=== PATIENT | female | born 1995 | race Caucasian/White ===

== ENCOUNTER 2017-03-18 20:49 | Emergency (ER) | payer OTHER ==
[2017-03-18 22:33] LABS: APPEARANCE,URINE SLIGHTLY-CLOUDY; BILIRUBIN,URINE NEGATIVE (NEGATIVE); GLUCOSE, URINE NEGATIVE (NEGATIVE); KETONES,URINE NEGATIVE (NEGATIVE); LEUKOCYTE ESTERASE,URINE NEGATIVE (NEGATIVE); NITRITE,URINE NEGATIVE (NEGATIVE); PROTEIN,URINE NEGATIVE (NEGATIVE); URINE SPECIFIC GRAVITY 1.031; UROBILINOGEN,URINE NEGATIVE mg/dL (<2.0)
--- NOTE | 2017-03-18 22:55 | ER Document Report ---
ED General - General Chief Complaint: Nausea/Vomiting Stated Complaint: NAUSEOUS Time Seen by Provider: 03/18/17 22:44 Notes: Patient is a 21-year-old female presents with complaint of a headache. Patient says sometimes of the headache is when she takes off her glasses. When she puts her glasses on the headache goes away. Currently she is wearing her glasses and has no headache. She denies any focal weakness or numbness. She is due for an eye appointment. She has not made an appointment to see an eye doctor she just moved here. No recent fevers or infections. No trauma. No other complaints at this time. Patient also requests a test because she has had negative tests at home, but still thinks she could be . She has a history of endometriosis. TRAVEL OUTSIDE OF THE [place] IN LAST 30 DAYS: No Past Medical History - Social History Smoking Status: Never Smoker Frequency of alcohol use: None Drug Abuse: None Family History: Reviewed & Not Pertinent Patient has suicidal ideation: No Patient has homicidal ideation: No Renal/ Medical History: Denies: Hx Peritoneal Dialysis Review of Systems - Review of Systems Notes: My Normal Review Basic REVIEW OF SYSTEMS: CONSTITUTIONAL : Denies fever, chills, or sweats. Denies recent illness. RESPIRATORY: Denies cough, cold, or chest congestion. Denies shortness of breath, difficulty breathing, or wheezing. GASTROINTESTINAL: Denies abdominal pain. Denies nausea, vomiting, or diarrhea. Denies constipation. MUSCULOSKELETAL: Denies neck or back pain or joint pain or swelling. SKIN: Denies rash or skin lesions. NEUROLOGICAL: Denies altered mental status or loss of consciousness. Intermittent headache. Denies weakness or paralysis or loss of use of either side. Denies problems with gait or speech. Denies sensory or motor loss. PSYCHIATRIC: Denies anxiety or stress or depression. ALL OTHER SYSTEMS REVIEWED AND NEGATIVE. Physical Exam - Vital signs Vitals: Temp Pulse Resp BP Pulse Ox 98.2 F 96 18 134/89 H 98 03/18/17 21:33 03/18/17 21:33 03/18/17 21:33 03/18/17 21:33 03/18/17 21:33 - Notes Notes: General Appearance: Well nourished, alert, cooperative, no acute distress, no obvious discomfort. Vitals: reviewed, See vital signs table. Head: no swelling or tenderness to the head Eyes: PERRL, EOMI, Conjuctiva clear Extremities: strength 5/5 in all extremities, good pulses in all extremities, no swelling or tenderness in the extremities, no edema. Skin: warm, dry, appropriate color, no rash Neuro: speech clear, oriented x 3, normal affect, responds appropriately to questions. cranial nerves 2-12 are intact, distal sensation intact, normal rhomberg, normal gait. Course - Vital Signs Vital signs: Temp Pulse Resp BP Pulse Ox 98.2 F 96 18 134/89 H 98 03/18/17 21:33 03/18/17 21:33 03/18/17 21:33 03/18/17 21:33 03/18/17 21:33 - Transfer of Care Notes: 03/18/17 23:20 Suspect that the patient's headaches are related to her vision. I suspect this because the patient's headache goes away when she puts on her glasses but it comes back when she takes off her glasses. Patient says as long she is wearing her glasses she does not have a headache. I suggested she continues to wear her glasses that she follows up with client success manager for repeat eye exam. Patient' s only other complaint was that she has chronic endometriosis and recently moved here and wants no current treatment options she would have outside of surgery for endometriosis. I informed her and talked her about possible Depo- Lupron shots and informed her that she would have to talk to her rasper machine operator about this and about the risks and benefits of the stroke versus surgery. I will refer her to women's health clinic. Patient encouraged to return to ER if she has any further concerns or problems. Patient agrees with plan will be discharged home. Dictation of this chart was performed using voice recognition software; therefore, there may be some unintended grammatical errors. Discharge - Discharge Clinical Impression: Endometriosis Headache Qualifiers: Headache type: unspecified Headache chronicity pattern: unspecified pattern Intractability: not intractable Qualified Code(s): R51 - Headache Condition: Good Disposition: HOME, SELF-CARE Additional Instructions: Please follow up closely with an client success manager for recheck of your vision and to see if you need your glasses corrected. Please up with [facility] , Dr. Henry, to have discuss further treatment options in regards to your history of endometriosis. Referrals: ROBBI HENRY, DO [PROFESSOR OF PSYCHIATRY] - Follow up in 3-5 days
[2017-03-19 00:05] VITALS: BP 129/78
== END 2017-03-18 23:20 | disposition home or self-care (01) ==
LOC: ER 20:49
DX: R51 Headache (principal); N80.9 Endometriosis, unspecified; Z32.00 Encounter for pregnancy test, result unknown
CPT/HCPCS: 81001; 81025; 99284

== ENCOUNTER 2017-04-12 17:38 | Emergency (ER) | payer OTHER ==
[2017-04-12] MEDS ORDERED: NORMAL SALINE 1000 ML 1,000 ML IV ONE (20:45)
[2017-04-12] MEDS ORDERED: METOCLOPRAMIDE HCL INJ/PF 10 MG/2 ML SDV IV ONE (21:10)
--- NOTE | 2017-04-12 21:25 | ER Document Report ---
ED GI/ - General Information source: Patient - HPI Patient complains to provider of: Abdominal pain Timing/Duration: Intermittent <LIANA HOBBS - Last Filed: 04/12/17 23:45> <JOSE L TELLO - Last Filed: 04/13/17 04:12> - General Chief Complaint: Abdominal Pain Stated Complaint: ABDOMINAL PAIN,NAUSEA Time Seen by Provider: 04/12/17 19:56 Notes: Patient is a 21 year old female who presents to the ED with complaints of intermittent lower abdominal pain with associated nausea x1 week. Patient denies any exacerbating or relieving factors to her abdominal pain but states her nausea is exacerbated by eating. 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 Patient states she still has her gallbladder. Patient denies any vomiting, diarrhea or back pain. No other concerns or complaints at this time. (LIANA HOBBS) Past Medical History - General Information source: Patient - Social History Smoking Status: Never Smoker Chew tobacco use (# tins/day): No Frequency of alcohol use: None Drug Abuse: None Family History: Reviewed & Not Pertinent Patient has suicidal ideation: No Patient has homicidal ideation: No Renal/ Medical History: Denies: Hx Peritoneal Dialysis Musculoskeltal Medical History: Reports Other - hx of carpel tunnel syndrome <LIANA HOBBS - Last Filed: 04/12/17 23:45> Review of Systems - Review of Systems Constitutional: No symptoms reported EENT: No symptoms reported Cardiovascular: No symptoms reported Respiratory: No symptoms reported Gastrointestinal: See HPI, Abdominal pain - lower, Nausea. denies: Diarrhea, Vomiting Genitourinary: No symptoms reported Female Genitourinary: No symptoms reported Musculoskeletal: See HPI. denies: Back pain Skin: No symptoms reported Hematologic/Lymphatic: No symptoms reported Neurological/Psychological: No symptoms reported <LIANA HOBBS - Last Filed: 04/12/17 23:45> Physical Exam - General General appearance: Appears well, Alert - HEENT Head: Normocephalic, Atraumatic Eyes: Normal Extraocular movements intact: Yes Pupils: PERRL Mucous membranes: Dry - Respiratory Respiratory status: No respiratory distress - Cardiovascular Rhythm: Regular Heart sounds: Normal auscultation Murmur: No - Abdominal Inspection: Normal Distension: No distension Bowel sounds: Normal Tenderness: Tender - mild diffuse tenderness to palpation. No: Nontender - Back Back: Normal - Extremities General upper extremity: Normal inspection, Normal ROM General lower extremity: Normal inspection, Normal ROM - Neurological Neuro grossly intact: Yes Cognition: Normal Orientation: AAOx4 Trista Coma Scale Eye Opening: Spontaneous Hamilton Coma Scale Verbal: Oriented Hamilton Coma Scale Motor: Obeys Commands Hamilton Coma Scale Total: 15 - Psychological Associated symptoms: Normal affect, Normal mood - Skin Skin Temperature: Warm Skin Moisture: Dry Skin Color: Normal <LIANA HOBBS - Last Filed: 04/12/17 23:45> Course - Laboratory Result Diagrams: 04/12/17 23:25 04/12/17 23:25 <LIANA HOBBS - Last Filed: 04/12/17 23:45> - Laboratory Result Diagrams: 04/12/17 23:25 04/12/17 23:25 - Diagnostic Test Radiology reviewed: Reports reviewed <JOSE L TELLO - Last Filed: 04/13/17 04:12> - Re-evaluation Re-evalutation: Patient did not want fluids. Patient just wanted results of ultrasound. Feels better. No pain. Instructed to follow-up at [facility] as she was instructed already at [facility] this morning. Stable for discharge ( JOSE L TELLO) - Vital Signs Vital signs: Temp Pulse Resp BP Pulse Ox 98.5 F 95 18 118/63 100 04/13/17 00:29 04/13/17 00:29 04/13/17 00:29 04/13/17 00:29 04/13/17 00:29 - Laboratory Laboratory results interpreted by me: 04/12/17 23:25 BUN 6 L Beta HCG, Quant 384.34 H Discharge <LIANA HOBBS - Last Filed: 04/12/17 23:45> <JOSE L TELLO - Last Filed: 04/13/17 04:12> - Discharge Clinical Impression: Qualifiers: Weeks of gestation: less than 8 weeks Qualified Code(s): Z3A.01 - Less than 8 weeks gestation of Condition: Stable Disposition: HOME, SELF-CARE Instructions: ([facility]) Additional Instructions: Please make sure you are drinking plenty of fluids. Please take Tylenol as needed for pain. Scribe Attestation: 04/13/17 04:11 I personally performed the services described in the documentation, reviewed and edited the documentation which was dictated to the scribe in my presence, and it accurately records my words and actions. (JOSE L TELLO) Scribe Documentation - Scribe Written by Carrie:: carrie Green, 04/12/2017, 2134 acting as scribe for :: Serene <LIANA HOBBS - Last Filed: 04/12/17 23:45>
[2017-04-12 23:37] LABS: ABSOLUTE EOSINOPHILS # (AUTO) 0.2 10^3/uL (0.0-0.6); ABSOLUTE LYMPHOCYTES (AUTO) 2.5 10^3/uL (0.5-4.7); ABSOLUTE MONOCYTES (AUTO) 0.7 10^3/uL (0.1-1.4); ABSOLUTE NEUT (AUTO) 6.6 10^3/uL (1.7-8.2); BASOPHILS % (AUTO) 0.4 % (0-2); EOSINOPHILS % (AUTO) 1.9 % (0-6); HEMOGLOBIN 12.8 g/dL (12.0-15.5); HGB HCT DIFFERENCE -0.6; LYMPHOCYTES % (AUTO) 25.1 % (13-45); MEAN CORPUSCULAR HEMOGLOBIN 28.5 pg (27.0-33.4); MEAN CORPUSCULAR HGB CONC 32.7 g/dL (32.0-36.0); MEAN CORPUSCULAR VOLUME 87 fl (80-97); MONOCYTES % (AUTO) 6.6 % (3-13); RED BLOOD COUNT 4.47 10^6/uL (3.72-5.28); RED CELL DISTRIBUTION WIDTH 13.6 % (11.5-14.0)
--- NOTE | 2017-04-12 23:37 | RADIOLOGY REPORT (SQ) ---
EXAM DESCRIPTION: U/S OB TRANSVAGINAL W/O DOP COMPLETED DATE/TIME: 04/12/2017 11:18 pm REASON FOR STUDY: evaluate for pelvic pain/IUP COMPARISON: None. TECHNIQUE: Transvaginal static and realtime grayscale images acquired of the pelvis. Additional mendoza cted spectral and color Doppler images recorded. All images stored on PACs. bHCG: Not available. LIMITATIONS: None. FINDINGS: 2.5 mm cystic structure in the upper endometrium, possible early IUP. UTERUS: No masses. No anomalies. CERVICAL LENGTH: 2.5 cm Closed. RIGHT ADNEXA: Normal ovary with normal vascular flow. No adnexal free fluid. No adnexal masses. LEFT ADNEXA: 2.1 cm luteal cyst. Ovary with normal vascular flow. No adnexal free fluid. No adnexal masses. FREE FLUID: None. OTHER: No other significant finding. IMPRESSION: 2.5 mm cystic structure in the upper endometrium, possible early IUP. EGA 5 weeks 0 day Trimester of : First - 0 to 13 weeks. TECHNICAL DOCUMENTATION: JOB ID: [id number] [employer]- All Rights Reserved
[2017-04-12 23:52] LABS: ALANINE AMINOTRANSFERASE 36 U/L (9-52); ALBUMIN 4.1 g/dL (3.5-5.0); ALKALINE PHOSPHATASE 89 U/L (38-126); ANION GAP 10 (5-19); ASPARTATE AMINO TRANSFERASE 29 U/L (14-36); BILIRUBIN,DIRECT 0.3 mg/dL (0.0-0.4); BILIRUBIN,TOTAL 0.3 mg/dL (0.2-1.3); BLOOD UREA NITROGEN 6 mg/dL (7-20); CARBON DIOXIDE 24 mmol/L (22-30); CHLORIDE 105 mmol/L (98-107); CREATININE RESULT 0.53 mg/dL (0.52-1.25); GLUCOSE 102 mg/dL (75-110); POTASSIUM 3.8 mmol/L (3.6-5.0); SODIUM 139.3 mmol/L (137-145); TOTAL PROTEIN 7.4 g/dL (6.3-8.2)
[2017-04-13 00:31] VITALS: BP 118/63
== END 2017-04-13 00:34 | disposition home or self-care (01) ==
LOC: ER 17:38
DX: O26.91 Pregnancy related conditions, unspecified, first trimester (principal); R10.30 Lower abdominal pain, unspecified; R11.0 Nausea; Z3A.01 Less than 8 weeks gestation of pregnancy
CPT/HCPCS: 36415; 76817; 80053; 84702; 85025; 99284

== ENCOUNTER 2017-04-28 19:40 | Emergency (ER) | payer OTHER ==
--- NOTE | 2017-04-28 20:54 | ER Document Report ---
ED Medical Screen (RME) - General TRAVEL OUTSIDE OF THE [place] IN LAST 30 DAYS: No - General Chief Complaint: Anxiety Stated Complaint: ANXIETY Time Seen by Provider: 04/28/17 20:44 Notes: Patient is a 22 year old female presenting to the emergency department for depression. Patient states she has threatened to divorce her which is not something that she would normally say. Anushka is 6 weeks ; patient is G1. Patient has not seen JOURNEYMAN MILLWRIGHT about her depression but has had an ultrasound 2 weeks ago confirming her . Patient does have some nausea and cramping. Patient denies any suicidal ideation or homocidal ideation. Patient is not taking any hormones for her . Patient does not have a history of depression. (JAYDEN FARAH) - Related Data Allergies/Adverse Reactions: hydrocodone Adverse Reaction (Verified 04/28/17 20:28) oxycodone Adverse Reaction (Verified 04/28/17 20:28) Past Medical History - Social History Cigarette use (# per day): No Chew tobacco use (# tins/day): No Frequency of alcohol use: None Drug Abuse: None Renal/ Medical History: Denies: Hx Peritoneal Dialysis Surgical Hx: Negative - Immunizations Hx Diphtheria, Pertussis, Tetanus Vaccination: Yes Physical Exam - Vital signs Vitals: Temp Pulse Resp BP Pulse Ox 98.6 F 82 16 131/77 H 100 04/28/17 20:19 04/28/17 20:19 04/28/17 20:19 04/28/17 20:19 04/28/17 20:19 - Notes Notes: GENERAL: Alert, interacts well, tearful. No acute distress. LUNGS: Clear to auscultation bilaterally, no wheezes, rales, or rhonchi. No respiratory distress. HEART: Regular rate and rhythm. No murmurs, gallops, or rubs. ABDOMEN: Soft, non-tender. Non-distended. Bowel sounds present in all 4 quadrants. (JAYDEN FARAH) Course - Re-evaluation Re-evalutation: 04/28/17 21:[address] Gt Rodriguez who is on-call for WINE [employer]GER to seek recommendations for possible antidepressants in this patient. Did not receive a phone call back within approximately 30 minutes (SHAKEEL TAVAREZ) - Vital Signs Vital signs: Temp Pulse Resp BP Pulse Ox 98.6 F 82 16 131/77 H 100 04/28/17 20:19 04/28/17 20:19 04/28/17 20:19 04/28/17 20:19 04/28/17 20:19 Doctor's Discharge - Discharge Instructions: Anxiety ([facility]) Scribe Documentation - Scribe Written by Scribe:: Mike Bowenibjim 04/28/17 20:55 acting as scribe for :: Ceasar
[2017-04-28 21:36] LABS: APPEARANCE,URINE SLIGHTLY-CLOUDY; BILIRUBIN,URINE NEGATIVE (NEGATIVE); GLUCOSE, URINE NEGATIVE (NEGATIVE); KETONES,URINE TRACE mg/dL (NEGATIVE); LEUKOCYTE ESTERASE,URINE TRACE (NEGATIVE); NITRITE,URINE NEGATIVE (NEGATIVE); PROTEIN,URINE NEGATIVE (NEGATIVE); URINE SPECIFIC GRAVITY 1.012; UROBILINOGEN,URINE NEGATIVE mg/dL (<2.0)
--- NOTE | 2017-04-28 22:07 | RADIOLOGY REPORT (SQ) ---
EXAM DESCRIPTION: U/S OB TRANSVAG W/DOPPLER COMPLETED DATE/TIME: 04/28/2017 9:52 pm REASON FOR STUDY: abd cramping, worsening, COMPARISON: 04/12/2017. TECHNIQUE: Transvaginal static and realtime grayscale images acquired of the pelvis. Additional mendoza cted spectral and color Doppler images recorded. All images stored on PACs. bHCG: Pending. LIMITATIONS: None. FINDINGS: FETUS: Living intrauterine . EGA: 7 week 1 day. ABDIRAHMAN: 12/14/2017. FHR: 125 beats per minute. SUBCHORIONIC BLEED: No. SIZE OF BLEED: Not applicable. UTERUS: No masses. No anomalies. CERVICAL LENGTH: 3.1 cm. Closed. RIGHT ADNEXA: Normal ovary with normal vascular flow. No adnexal free fluid. No adnexal masses. LEFT ADNEXA: Normal ovary with normal vascular flow. No adnexal free fluid. 1.7 cm cyst. FREE FLUID: None. OTHER: No other significant finding. IMPRESSION: LIVING INTRAUTERINE . EGA 7 WEEK 1 DAY. Trimester of : First - 0 to 13 weeks. TECHNICAL DOCUMENTATION: JOB ID: [id number] [employer]- All Rights Reserved
[2017-04-28 22:36] LABS: ABSOLUTE EOSINOPHILS # (AUTO) 0.1 10^3/uL (0.0-0.6); ABSOLUTE LYMPHOCYTES (AUTO) 2.7 10^3/uL (0.5-4.7); ABSOLUTE MONOCYTES (AUTO) 0.5 10^3/uL (0.1-1.4); ABSOLUTE NEUT (AUTO) 9.4 10^3/uL (1.7-8.2); BASOPHILS % (AUTO) 0.4 % (0-2); EOSINOPHILS % (AUTO) 0.9 % (0-6); HEMATOCRIT 38.3 % (36.0-47.0); HEMOGLOBIN 12.7 g/dL (12.0-15.5); HGB HCT DIFFERENCE -0.2; LYMPHOCYTES % (AUTO) 21.2 % (13-45); MEAN CORPUSCULAR HEMOGLOBIN 28.5 pg (27.0-33.4); MEAN CORPUSCULAR HGB CONC 33.1 g/dL (32.0-36.0); MEAN CORPUSCULAR VOLUME 86 fl (80-97); MONOCYTES % (AUTO) 3.6 % (3-13); RED BLOOD COUNT 4.44 10^6/uL (3.72-5.28); RED CELL DISTRIBUTION WIDTH 13.3 % (11.5-14.0); SEGMENTED NEUTROPHILS % (AUTO) 73.9 % (42-78); WHITE BLOOD COUNT 12.7 10^3/uL (4.0-10.5)
[2017-04-28] MEDS ORDERED: ONDANSETRON 4 MG TAB.RAPDIS PO ONE (22:36)
[2017-04-28 22:42] LABS: ALANINE AMINOTRANSFERASE 33 U/L (9-52); ALBUMIN 4.2 g/dL (3.5-5.0); ALKALINE PHOSPHATASE 77 U/L (38-126); ANION GAP 12 (5-19); ASPARTATE AMINO TRANSFERASE 20 U/L (14-36); BILIRUBIN,DIRECT 0.3 mg/dL (0.0-0.4); BILIRUBIN,TOTAL 0.5 mg/dL (0.2-1.3); BLOOD UREA NITROGEN 6 mg/dL (7-20); CALCIUM 9.5 mg/dL (8.4-10.2); CARBON DIOXIDE 25 mmol/L (22-30); CHLORIDE 101 mmol/L (98-107); CREATININE RESULT 0.58 mg/dL (0.52-1.25); GLUCOSE 100 mg/dL (75-110); POTASSIUM 3.6 mmol/L (3.6-5.0); TOTAL PROTEIN 7.4 g/dL (6.3-8.2)
[2017-04-29] MEDS ORDERED: LIDOCAINE 1% INJ-PF (10 MG/ML) 30 ML SDV INJ ONE (00:12)
[2017-04-29] MEDS ORDERED: CEFTRIAXONE INJ 1000 MG VIAL IM ONE (00:12)
--- NOTE | 2017-04-29 00:18 | ER Document Report ---
ED General - General Chief Complaint: Anxiety Stated Complaint: ANXIETY Time Seen by Provider: 04/28/17 20:44 Mode of Arrival: Ambulatory Information source: Patient Notes: 22-year-old female presents to ED for anxiety and depression concerning her . She states she is about 6 or 7 weeks she is 1 para 0. She has not seen an BEHAVIORAL INTERVENTION SPECIALIST about her depression but has had ultrasound to confirm her . She does have some nausea and cramping. She denies any suicidal and ideations but she states she is just anxious and depressed concerning her . is at the bedside and patient states she does want the child she just does not understand the changes due to her hormones. TRAVEL OUTSIDE OF THE [place] IN LAST 30 DAYS: No - HPI Onset: Other - Couple weeks Onset/Duration: Gradual Quality of pain: No pain Severity: None Pain Level: Denies Associated symptoms: Other - Anxiety and depression due to hormonal changes with Exacerbated by: Denies Relieved by: Denies Similar symptoms previously: No Recently seen / treated by doctor: No - Related Data Allergies/Adverse Reactions: hydrocodone Adverse Reaction (Verified 04/28/17 20:28) oxycodone Adverse Reaction (Verified 04/28/17 20:28) Past Medical History - General Information source: Patient - Social History Smoking Status: Never Smoker Cigarette use (# per day): No Chew tobacco use (# tins/day): No Smoking Education Provided: No Frequency of alcohol use: None Drug Abuse: None Lives with: Family Family History: Reviewed & Not Pertinent Patient has suicidal ideation: No Patient has homicidal ideation: No - Past Medical History Cardiac Medical History: Reports: None Pulmonary Medical History: Reports: None EENT Medical History: Reports: None Neurological Medical History: Reports: None Endocrine Medical History: Reports: None Renal/ Medical History: Reports: None Malignancy Medical History: Reports: None GI Medical History: Reports: None Musculoskeltal Medical History: Reports None Skin Medical History: Reports None Psychiatric Medical History: Reports: None Traumatic Medical History: Reports: None Infectious Medical History: Reports: None Surgical Hx: Negative - Immunizations Hx Diphtheria, Pertussis, Tetanus Vaccination: Yes Review of Systems - Review of Systems Constitutional: No symptoms reported EENT: No symptoms reported Cardiovascular: No symptoms reported Respiratory: No symptoms reported Gastrointestinal: No symptoms reported Genitourinary: No symptoms reported Female Genitourinary: No symptoms reported Musculoskeletal: No symptoms reported Skin: No symptoms reported Hematologic/Lymphatic: No symptoms reported Neurological/Psychological: Depression, Anxiety -: Yes All other systems reviewed and negative Physical Exam - Vital signs Vitals: Temp Pulse Resp BP Pulse Ox 98.6 F 82 16 131/77 H 100 04/28/17 20:19 04/28/17 20:19 04/28/17 20:19 04/28/17 20:19 04/28/17 20:19 Interpretation: Normal - General General appearance: Appears well, Alert - HEENT Head: Normocephalic, Atraumatic Eyes: Normal Pupils: PERRL - Respiratory Respiratory status: No respiratory distress Chest status: Nontender Breath sounds: Normal Chest palpation: Normal - Cardiovascular Rhythm: Regular Heart sounds: Normal auscultation Murmur: No - Abdominal Inspection: Normal Distension: No distension Bowel sounds: Normal Tenderness: Nontender Organomegaly: No organomegaly - Back Back: Normal, Nontender - Extremities General upper extremity: Normal inspection, Nontender, Normal color, Normal ROM , Normal temperature General lower extremity: Normal inspection, Nontender, Normal color, Normal ROM , Normal temperature, Normal weight bearing. No: Kaelyn's sign - Neurological Neuro grossly intact: Yes Cognition: Normal Orientation: AAOx4 Trista Coma Scale Eye Opening: Spontaneous Trista Coma Scale Verbal: Oriented [place] Coma Scale Motor: Obeys Commands [place] Coma Scale Total: 15 Speech: Normal Motor strength normal: LUE, RUE, LLE, RLE Sensory: Normal - Psychological Associated symptoms: Anxious, Depressed - Skin Skin Temperature: Warm Skin Moisture: Dry Skin Color: Normal Course - Re-evaluation Re-evalutation: 04/29/17 08:55 Discussed labs and ultrasound with patient and her encourage patient to contact her BEHAVIORAL INTERVENTION SPECIALIST on Monday and ask about a counselor to help her with her depression. Also recommended follow-up with BEHAVIORAL INTERVENTION SPECIALIST to discuss hormonal changes in the physical changes during . - Vital Signs Vital signs: Temp Pulse Resp BP Pulse Ox 98.4 F 85 20 125/65 100 04/29/17 00:45 04/29/17 00:45 04/29/17 00:45 04/29/17 00:45 04/29/17 00:45 - Laboratory Result Diagrams: 04/28/17 22:15 04/28/17 22:15 Laboratory results interpreted by me: 07/21/17 07/21/17 07/21/17 21:07 22:15 22:15 WBC 12.7 H Absolute Neutrophils 9.4 H BUN 6 L Beta HCG, Quant 45535.00 H Urine Ketones TRACE H Ur Leukocyte Esterase TRACE H Discharge - Discharge Clinical Impression: Anxiety during in first trimester, antepartum Qualifiers: Weeks of gestation: less than 8 weeks Qualified Code(s): Z3A.01 - Less than 8 weeks gestation of Condition: Stable Disposition: HOME, SELF-CARE Additional Instructions: You are . care is best started as early in as possible. If you're unsure about continuing this , you should discuss this with your physician or with commissary worker at [facility]. You should take only medications approved by your physician. Acetaminophen can safely be taken for minor pains. As a rule, medication for chronic conditions such as asthma or seizures can safely be continued. You should discuss with the physician every medicine you take. Any regular exercise program can be continued. Talk to your physician, however, before engaging in competitive or demanding sports. Alcohol, smoking, and "street drugs" are dangerous to your baby. Cocaine is especially dangerous. Don't use any illicit drugs! Anxiety The physician feels that some of your health problems are being caused by anxiety. Anxiety affects your health in many ways. Anxiety alone can cause palpitations, sweats, chest pains, abdominal pains, shortness of breath, and headaches. It contributes to ulcer disease, high blood pressure, irritable bowel syndrome, and has been shown to cause flare-ups of many other diseases. Anxiety is not a simple disorder to treat. If the anxiety is due to recent life stresses, you may simply need time to "work through" the changes. If the anxiety is due to an underlying unhappiness with yourself or due to psychiatric disturbance, professional help will be needed. Your physician can refer you for further help if needed. Anti-anxiety medication is occasionally given if the stress is acute or if you are having trouble sleeping. Chronic or frequent use of these medications is not a good idea because the body becomes reliant on it, preventing you from dealing with life's normal stresses. NORMAL EXAM AND WORKUP: At this time, your examination and workup show no significant abnormality. No significant abnormal physical findings were noted. All laboratory, EKG, and imaging (x-ray, CT scans, ultrasound) studies that were ordered show no significant abnormality. Although your examination and all studies that were ordered showed no significant abnormal finding, there are no examinations and no studies that are 100% accurate. There is always the possibility that some abnormality could exist and not be detected with physical examination or within the limits and capabilities of laboratory and other studies. You should return or follow up as you were instructed on your visit today for further evaluation if your symptoms do not resolve. FOLLOW-UP CARE: If you have been referred to a physician for follow-up care, call the physician s office for an appointment as you were instructed or within the next two days. If you experience worsening or a significant change in your symptoms, notify the physician immediately or return to the Emergency Department at any time for re-evaluation. Called your BEHAVIORAL INTERVENTION SPECIALIST at [facility] on Monday to discuss your concerns of depression and anxiety during a you state you have had no problems with this before . Forms: Elevated Blood Pressure
[2017-04-29 00:45] VITALS: BP 125/65
== END 2017-04-29 00:40 | disposition home or self-care (01) ==
LOC: ER 19:40
DX: O99.341 Other mental disorders complicating pregnancy, first trimester (principal); F41.9 Anxiety disorder, unspecified; Z3A.01 Less than 8 weeks gestation of pregnancy; Z88.6 Allergy status to analgesic agent
CPT/HCPCS: 99284; 96372; 36415; 84702; 85025; 80053; 81001; 76817; 93976; S0119; J3490; J0696